=== PATIENT | male | born 1955 | race Caucasian/White ===

== ENCOUNTER → 2018-04-30 | Outpatient (CLI) | payer OTHER | END | disposition home or self-care (01) | LOC: CVU 09:54 | PROVIDERS: ATTEND Internal Medicine Cardiovascular Disease | DX: I65.23 Occlusion and stenosis of bilateral carotid arteries (principal); I10 Essential (primary) hypertension; Z95.1 Presence of aortocoronary bypass graft | CPT/HCPCS: 93880 ==

== ENCOUNTER 2018-05-15 22:08 | Inpatient (IN) | payer OTHER ==
[~2018-05-15] VITALS: Ht 177.8 cm; Wt 93.7 kg
[2018-05-15] MEDS ORDERED: ZOLP-413 PO (22:25)
[2018-05-15] MEDS ORDERED: LISI-170 PO (22:25)
[2018-05-15] MEDS ORDERED: CETI10CA PO (22:25)
[2018-05-15] MEDS ORDERED: METO25TA35 PO (22:25)
[2018-05-15] MEDS ORDERED: ATOR40TA PO (22:25)
[2018-05-15] MEDS ORDERED: ASPI-496 PO (22:25)
[2018-05-15 22:44] LABS: BASOPHILS # (AUTO) 0.04 x10^3/uL (0-0.1); BASOPHILS % (AUTO) 0 % (0-1); EOSINOPHILS # (AUTO) 0.13 x10^3/uL (0-0.4); EOSINOPHILS % (AUTO) 2 % (1-7); LYMPHOCYTES # (AUTO) 3.09 x10^3/uL (1-3.4); LYMPHOCYTES % (AUTO) 38 % (22-44); MD NO; MEAN CORPUSCULAR HEMOGLOBIN 33.1 pg (27.5-34.5); MEAN CORPUSCULAR HGB CONC 34.5 g/dL (33.2-36.2); MEAN CORPUSCULAR VOLUME 95.9 fL (81-97); MONOCYTES # (AUTO) 0.77 x10^3/uL (0.2-0.8); MONOCYTES % (AUTO) 9 % (2-9); NEUTROPHILS # (AUTO) 4.19 x10^3/uL (1.8-6.8); NEUTROPHILS % (AUTO) 51 % (42-75); PLATELET COUNT 212 x10^3/uL (130-400); RED BLOOD COUNT 4.43 x10^6/uL (4.38-5.82); RED CELL DISTRIBUTION WIDTH 13.4 % (9.4-14.8)
[2018-05-15 22:55] LABS: ALBUMIN 3.5 g/dL (3.4-5.0); ANION GAP 4 mmol/L (5-15); CALCIUM 8.5 mg/dL (8.5-10.1); CHLORIDE 108 mmol/L (98-107); CREATININE 0.94 mg/dL (0.7-1.3)
[2018-05-15 22:59] LABS: TROPONIN I 0.035 ng/mL (0.000-0.045)
[2018-05-15] MEDS ORDERED: KETOROLAC 30 MG/1 ML ONE (23:09)
[2018-05-15] MEDS ORDERED: NITROGLYCERIN SINGLE TAB 0.4 MG SL ONE (23:23)
[2018-05-15] MEDS ORDERED: NITROGLYCERIN 0.4 MG BOTTLE (25 TABS) SL ONE (23:30)
[2018-05-15] MEDS ORDERED: ONDANSETRON 2MG/ML, 2ML IVPush PRN (23:30)
[2018-05-15] MEDS ORDERED: MORPHINE SULFATE 4 MG/ML, 1ML IVPush PRN (23:30)
[2018-05-16] MEDS ORDERED: ACETAMINOPHEN 325 MG TABLET PO PRN
[2018-05-16] MEDS ORDERED: POLYETHYLENE GLYCOL 17 GM PACKET PO PRN
[2018-05-16] MEDS ORDERED: NITROGLYCERIN 0.4 MG BOTTLE (25 TABS) SL PRN
[2018-05-16] MEDS ORDERED: BISACODYL 10 MG SUPP PR PRN
[2018-05-16] MEDS ORDERED: ONDANSETRON 2MG/ML, 2ML IVPush PRN
[2018-05-16] MEDS ORDERED: hydrALAzine 20 MG/ML, 1ML IVPush PRN
[2018-05-16] MEDS ORDERED: morphine SULFATE 10 MG/ML, 1ML IVPush PRN
[2018-05-16 00:35] VITALS: BP 134/70
[2018-05-16 00:38] VITALS: BP 134/70
[2018-05-16] MEDS: HEPARIN 5,000 UNITS/ML, 1ML SQ SCH ×3 (01:19→16:30)
[2018-05-16] MEDS: FAMOTIDINE 20 MG TABLET PO SCH ×2 (01:22→20:59)
[2018-05-16] MEDS: ZOLPIDEM 5MG TABLET PO PRN ×2 (01:30→22:06)
[2018-05-16] MEDS ORDERED: RANI150C PO (01:46)
[2018-05-16 05:43] LABS: CHLORIDE 108 mmol/L (98-107)
[2018-05-16 05:45] LABS: BASOPHILS # (AUTO) 0.02 x10^3/uL (0-0.1); BASOPHILS % (AUTO) 0 % (0-1); EOSINOPHILS # (AUTO) 0.07 x10^3/uL (0-0.4); EOSINOPHILS % (AUTO) 1 % (1-7); LYMPHOCYTES # (AUTO) 3.06 x10^3/uL (1-3.4); LYMPHOCYTES % (AUTO) 38 % (22-44); MD NO; MEAN CORPUSCULAR HEMOGLOBIN 33.5 pg (27.5-34.5); MEAN CORPUSCULAR HGB CONC 34.5 g/dL (33.2-36.2); MEAN PLATELET VOLUME 8.1 fL (7.4-10.4); MONOCYTES # (AUTO) 0.65 x10^3/uL (0.2-0.8); MONOCYTES % (AUTO) 8 % (2-9); NEUTROPHILS # (AUTO) 4.33 x10^3/uL (1.8-6.8); NEUTROPHILS % (AUTO) 53 % (42-75); PLATELET COUNT 206 x10^3/uL (130-400); RED BLOOD COUNT 4.32 x10^6/uL (4.38-5.82); RED CELL DISTRIBUTION WIDTH 13.5 % (9.4-14.8)
[2018-05-16 05:53] LABS: ALANINE AMINOTRANSFERASE 26 U/L (12-78); ALBUMIN 3.2 g/dL (3.4-5.0); ALKALINE PHOSPHATASE 38 U/L (45-117); ANION GAP 6 mmol/L (5-15); BILIRUBIN,TOTAL 1.3 mg/dL (0.2-1.0); CALCIUM 8.2 mg/dL (8.5-10.1); CHOL/HDL RATIO 2.4; CHOLESTEROL, TOTAL 100 mg/dL (140-239); CREATININE 0.85 mg/dL (0.7-1.3); HDL CHOL % 42 % (26-37); HDL CHOLESTEROL (DIRECT) 42 mg/dL (40-60); LDL CHOLESTEROL,CALCULATED 46 mg/dL (54-169); LDL/HDL RATIO 1.1 (0.5-3.0); TOTAL PROTEIN 6.1 g/dL (6.4-8.2); TRIGLYCERIDES 58 mg/dL (50-200); TROPONIN I 0.037 ng/mL (0.000-0.045); VLDL CHOLESTEROL 12 mg/dL (0-25)
[2018-05-16 06:56] VITALS: BP 119/64
[2018-05-16] MEDS ORDERED: REGADENOSON 0.4 MG/5 ML SYRINGE ONE (07:25)
[2018-05-16] MEDS: LISINOPRIL 20 MG TABLET PO SCH ×3 (09:00→20:59)
[2018-05-16] MEDS: SODIUM CHLORIDE FLUSH 10ML SYR IVF SCH ×3 (09:00→20:59)
[2018-05-16] MEDS: METOPROLOL TARTRATE 25 MG TABLET PO SCH ×3 (09:00→20:59)
[2018-05-16] MEDS: CETIRIZINE 10 MG TABLET PO SCH (09:00)
[2018-05-16] MEDS: SENNA/DOCUSATE TABLET PO SCH (09:00)
[2018-05-16 11:14] LABS: TROPONIN I 0.177 ng/mL (0.000-0.045)
[2018-05-16 14:24] VITALS: BP 146/78
[2018-05-16] MEDS ORDERED: HEPARIN 25,000 UNITS/500ML PMX 500 ML ONE (17:20)
[2018-05-16 17:54] LABS: CHOL/HDL RATIO 2.5; LDL/HDL RATIO 1.1 (0.5-3.0)
[2018-05-16] MEDS ORDERED: HEPARIN 5,000 UNITS/ML, 1ML IV ONE ×2 (18:00)
[2018-05-16] MEDS ORDERED: HEPARIN 5,000 UNITS/ML, 1ML IV PRN (18:00)
[2018-05-16] MEDS ORDERED: HEPARIN 25,000 UNITS/500ML PMX 500 ML IV PRN (18:00)
[2018-05-16 19:05] VITALS: BP 133/69
[2018-05-16] MEDS: ATORVASTATIN 40 MG TABLET PO SCH ×2 (20:59)
[2018-05-16] MEDS: ASPIRIN 81 MG TABLET EC PO SCH (20:59)
[2018-05-17 00:52] VITALS: BP 106/56
[2018-05-17 05:40] LABS: ALBUMIN 3.1 g/dL (3.4-5.0); ANION GAP 5 mmol/L (5-15); CALCIUM 8.2 mg/dL (8.5-10.1); CHLORIDE 108 mmol/L (98-107)
[2018-05-17 05:42] LABS: BASOPHILS # (AUTO) 0.03 x10^3/uL (0-0.1); BASOPHILS % (AUTO) 0 % (0-1); CREATININE 0.85 mg/dL (0.7-1.3); EOSINOPHILS % (AUTO) 1 % (1-7); LYMPHOCYTES # (AUTO) 2.53 x10^3/uL (1-3.4); LYMPHOCYTES % (AUTO) 22 % (22-44); MD NO; MEAN CORPUSCULAR HEMOGLOBIN 33.1 pg (27.5-34.5); MEAN CORPUSCULAR HGB CONC 33.7 g/dL (33.2-36.2); MEAN CORPUSCULAR VOLUME 98.1 fL (81-97); MONOCYTES # (AUTO) 0.76 x10^3/uL (0.2-0.8); MONOCYTES % (AUTO) 7 % (2-9); NEUTROPHILS # (AUTO) 8.09 x10^3/uL (1.8-6.8); NEUTROPHILS % (AUTO) 70 % (42-75); PLATELET COUNT 200 x10^3/uL (130-400); RED CELL DISTRIBUTION WIDTH 13.6 % (9.4-14.8)
[2018-05-17 05:50] LABS: HEMOGLOBIN A1C 5.9 % (4.2-6.3)
[2018-05-17 07:19] VITALS: BP 109/67
[2018-05-17] MEDS: CETIRIZINE 10 MG TABLET PO SCH (07:59)
[2018-05-17] MEDS: METOPROLOL TARTRATE 25 MG TABLET PO SCH ×2 (07:59→21:19)
[2018-05-17] MEDS: LISINOPRIL 20 MG TABLET PO SCH ×2 (08:00→21:18)
[2018-05-17] MEDS: SENNA/DOCUSATE TABLET PO SCH (08:01)
[2018-05-17] MEDS: SODIUM CHLORIDE FLUSH 10ML SYR IVF SCH ×2 (08:04→21:18)
[2018-05-17] MEDS ORDERED: TICAGRELOR 90 MG TABLET ONE (12:31)
[2018-05-17] MEDS ORDERED: LIDOCAINE-MPF 2% ,5ML ONE (12:31)
[2018-05-17] MEDS ORDERED: VERAPAMIL 2.5 MG/ML, 2ML ONE (12:31)
[2018-05-17] MEDS ORDERED: HEPARIN 1,000 UNITS/ML, 10ML ONE (12:31)
[2018-05-17] MEDS ORDERED: BIVALIRUDIN 250 MG ONE (12:31)
[2018-05-17] MEDS ORDERED: FENTANYL PF 100 MCG/2ML ONE (12:31)
[2018-05-17] MEDS ORDERED: MIDAZOLAM 1 MG/ML, 5ML ONE (12:31)
[2018-05-17] MEDS ORDERED: SODIUM CHLORIDE 0.9% 1,000 ML IV SCH (14:52)
[2018-05-17 14:58] VITALS: BP 125/58
[2018-05-17 19:13] VITALS: BP 133/68
[2018-05-17] MEDS: ZOLPIDEM 5MG TABLET PO PRN (21:19)
[2018-05-17] MEDS: ASPIRIN 81 MG TABLET EC PO SCH (21:19)
[2018-05-17] MEDS: ATORVASTATIN 40 MG TABLET PO SCH (21:19)
[2018-05-17] MEDS: TICAGRELOR 90 MG TABLET PO SCH (21:19)
[2018-05-17] MEDS: FAMOTIDINE 20 MG TABLET PO SCH (21:19)
[2018-05-17 21:22] VITALS: BP 131/75
[2018-05-18 02:40] VITALS: BP 118/67
[2018-05-18 05:23] LABS: ALBUMIN 3.1 g/dL (3.4-5.0); ANION GAP 5 mmol/L (5-15); CALCIUM 8.1 mg/dL (8.5-10.1); CHLORIDE 110 mmol/L (98-107)
[2018-05-18 07:00] VITALS: BP 121/72
[2018-05-18] MEDS: LISINOPRIL 20 MG TABLET PO SCH (08:25)
[2018-05-18] MEDS: METOPROLOL TARTRATE 25 MG TABLET PO SCH (08:25)
[2018-05-18] MEDS: TICAGRELOR 90 MG TABLET PO SCH (08:25)
[2018-05-18] MEDS: CETIRIZINE 10 MG TABLET PO SCH (08:27)
[2018-05-18] MEDS: SENNA/DOCUSATE TABLET PO SCH (08:27)
[2018-05-18] MEDS: SODIUM CHLORIDE FLUSH 10ML SYR IVF SCH (08:33)
[2018-05-18] MEDS ORDERED: ASPIRIN 81 MG TABLET EC PO SCH (09:00)
[2018-05-18] MEDS ORDERED: TICA90TA PO (12:23)
== END 2018-05-18 14:44 | disposition home or self-care (01) | DRG 246 ==
LOC: ED 23:09 → EDIP 23:18 → 5SO 05-16 00:12 → DCLOUNGE 05-18 14:23
PROVIDERS: ADMIT Hospitalist; ATTEND Hospitalist
PROC: 027035Z Dilation of Coronary Artery, One Artery with Two Drug-eluting Intraluminal Devices, Percutaneous Approach (ICD-10-PCS; principal; 2018-05-17)
PROC: 4A023N7 Measurement of Cardiac Sampling and Pressure, Left Heart, Percutaneous Approach (ICD-10-PCS; 2018-05-17)
PROC: B2111ZZ Fluoroscopy of Multiple Coronary Arteries using Low Osmolar Contrast (ICD-10-PCS; 2018-05-17)
PROC: B2151ZZ Fluoroscopy of Left Heart using Low Osmolar Contrast (ICD-10-PCS; 2018-05-17)
PROC: B2131ZZ Fluoroscopy of Multiple Coronary Artery Bypass Grafts using Low Osmolar Contrast (ICD-10-PCS; 2018-05-17)
PROC: B2181ZZ Fluoroscopy of Left Internal Mammary Bypass Graft using Low Osmolar Contrast (ICD-10-PCS; 2018-05-17)
DX: I25.118 Atherosclerotic heart disease of native coronary artery with other forms of angina pectoris (principal); I50.33 Acute on chronic diastolic (congestive) heart failure; I10 Essential (primary) hypertension; I25.82 Chronic total occlusion of coronary artery; R00.1 Bradycardia, unspecified; E78.5 Hyperlipidemia, unspecified; Z79.82 Long term (current) use of aspirin; Z80.7 Family history of other malignant neoplasms of lymphoid, hematopoietic and related tissues; Z82.49 Family history of ischemic heart disease and other diseases of the circulatory system; Z87.891 Personal history of nicotine dependence; Z95.1 Presence of aortocoronary bypass graft; Z96.659 Presence of unspecified artificial knee joint
CPT/HCPCS: 36415; 71045; 78452; 80048; 80053; 80061; 80069; 82040; 83036; 84484; 85014; 85018; 85025; 85520; 93005; 93017; 93306; 93458; 99156; 99157; 99285; C1769; C1894; J0583; J1644; J2250; J2785; J3010; J3490; A9502; C1725; C1874; C1887; C9898; J7030; Q9967

== ENCOUNTER 2018-11-23 06:54 | Inpatient (IN) | payer OTHER ==
[~2018-11-23] VITALS: Ht 177.8 cm; Wt 89.5 kg
[~2018-11-23 06:54] MED LIST: ASPI-496 PO; ATOR40TA PO; CETI10CA PO; LISI-170 PO; METO25TA35 PO; RANI150C PO; TICA90TA PO; ZOLP-413 PO
--- NOTE | 2018-11-23 07:14 | NUR ---
PT. ARRIVES BY [facility] WITH C/O BILAT SHOULDER PAIN THAT RADIATES TO HIS LEFT CHEST AND LEFT ARM PAIN. PT. STATES THE ONSET WAS 0535 AM. PT. STATES HE TOOK 324 MG [facility]SA PRENATAL NURSE. EMS GAVE THE PT. A NITRO WITHOUT RELIEF. IV ACCESS WAS ESTABLISHED IN THE FIELD. PT.'S LUNGS ARE CTA. MM ARE PINK AND MOIST WITH PULSES +2 THROUGHOUT. PT.'S ABD. IS SOFT AND ROUND WITH BS + X 4 QUADS. PT. HAS THE CP MONITOR IN PLACE. 12 LEAD EKG WAS DONE. SIDERAILS ARE UP X 2 WITH THE CALL LIGHT IN PLACE.
[2018-11-23] MEDS ORDERED: SODIUM CHLORIDE FLUSH 10ML SYR IVF ONE (07:30)
[2018-11-23] MEDS ORDERED: NITROGLYCERIN OINT 2%, 1GM TP ONE ×2 (07:30→07:48)
[2018-11-23 07:32] LABS: BASOPHILS # (AUTO) 0.02 x10^3/uL (0-0.1); BASOPHILS % (AUTO) 0 % (0-1); EOSINOPHILS # (AUTO) 0.14 x10^3/uL (0-0.4); EOSINOPHILS % (AUTO) 2 % (1-7); LYMPHOCYTES # (AUTO) 2.03 x10^3/uL (1-3.4); LYMPHOCYTES % (AUTO) 25 % (22-44); MD NO; MEAN CORPUSCULAR HGB CONC 33.9 g/dL (33.2-36.2); MEAN CORPUSCULAR VOLUME 97.4 fL (81-97); MEAN PLATELET VOLUME 7.7 fL (7.4-10.4); MONOCYTES # (AUTO) 0.52 x10^3/uL (0.2-0.8); MONOCYTES % (AUTO) 7 % (2-9); NEUTROPHILS # (AUTO) 5.28 x10^3/uL (1.8-6.8); NEUTROPHILS % (AUTO) 66 % (42-75); PLATELET COUNT 241 x10^3/uL (130-400); RED BLOOD COUNT 4.98 x10^6/uL (4.38-5.82); RED CELL DISTRIBUTION WIDTH 13.1 % (9.4-14.8)
[2018-11-23 07:45] LABS: ALBUMIN 3.7 g/dL (3.4-5.0); ANION GAP 5 mmol/L (5-15); CHLORIDE 105 mmol/L (98-107); CREATININE 0.97 mg/dL (0.7-1.3)
[2018-11-23 07:49] LABS: TROPONIN I < 0.015 ng/mL (0.000-0.045)
--- NOTE | 2018-11-23 08:15 | NUR ---
PT. REMAINS MONITORED VSS. NO CONCERNS.
--- NOTE | 2018-11-23 09:14 | NUR ---
THE PT. IS RESTING WITH HIS AT THE BEDSIDE. NO CONCERNS AT THIS TIME.
--- NOTE | 2018-11-23 09:21 | NUR ---
HOSPITALIST IS AT THE BEDSIDE. NO CONCERNS.
[2018-11-23] MEDS ORDERED: POLYETHYLENE GLYCOL 17 GM PACKET PO PRN (09:30)
[2018-11-23] MEDS ORDERED: ENALAPRILAT 1.25 MG/ML, 2ML IVPush PRN (09:30)
[2018-11-23] MEDS ORDERED: BISACODYL 10 MG SUPP PR PRN (09:30)
[2018-11-23] MEDS ORDERED: ONDANSETRON ODT 4 MG PO PRN (09:30)
[2018-11-23] MEDS ORDERED: ONDANSETRON 2MG/ML, 2ML IVPush PRN (09:30)
[2018-11-23] MEDS ORDERED: DOCUSATE 100 MG CAPSULE PO PRN (09:30)
[2018-11-23] MEDS ORDERED: MORPHINE SULFATE 4 MG/ML, 1ML IVPush PRN (09:30)
[2018-11-23] MEDS ORDERED: NITROGLYCERIN 0.4 MG BOTTLE (25 TABS) SL PRN (09:30)
[2018-11-23] MEDS ORDERED: FAMOTIDINE 20 MG TABLET PO PRN (10:00)
--- NOTE | 2018-11-23 10:00 | NUR ---
PT. IS RESTING WITHOUT CONCERNS.
[2018-11-23 11:11] LABS: THYROID STIMULATING HORMONE 3.87 mIU/L (0.358-3.740)
--- NOTE | 2018-11-23 11:29 | NUR ---
NO CHANGE AT THIS TIME.
--- NOTE | 2018-11-23 11:58 | NUR ---
REPORT WAS CALLED TO CIERRA CUNNINGHAM. PT. IS READY FOR TRANSPORT TO THE FLOOR.
--- NOTE | 2018-11-23 12:00 | NUR ---
DR. MASTERSON IS AT THE BEDSIDE DISCUSSING THE PLAN OF CARE WITH THE PT. PT. IS AWARE THAT HE IS NPO. PT. IS READY FOR TRANSPORT.
[2018-11-23 12:20] VITALS: BP 146/78
[2018-11-23 12:25] LABS: TROPONIN I < 0.015 ng/mL (0.000-0.045)
[2018-11-23] MEDS ORDERED: SODIUM CHLORIDE 0.9% 1,000 ML IV ONE (12:26)
[2018-11-23] MEDS ORDERED: MIDAZOLAM 1 MG/ML, 5ML ONE (13:36)
[2018-11-23] MEDS ORDERED: FENTANYL PF 100 MCG/2ML ONE (13:36)
[2018-11-23] MEDS ORDERED: TICAGRELOR 90 MG TABLET ONE (13:36)
[2018-11-23] MEDS ORDERED: VERAPAMIL 2.5 MG/ML, 2ML ONE (13:36)
[2018-11-23] MEDS ORDERED: BIVALIRUDIN 250 MG ONE (13:37)
[2018-11-23] MEDS ORDERED: LIDOCAINE-MPF 1%, 5ML ONE ×2 (13:37→13:40)
[2018-11-23] MEDS ORDERED: HEPARIN 1,000 UNITS/ML, 10ML ONE (13:37)
[2018-11-23] MEDS ORDERED: LIDOCAINE 1%, 20ML ONE (14:00)
[2018-11-23 14:04] LABS: TROPONIN I < 0.015 ng/mL (0.000-0.045)
[2018-11-23] MEDS ORDERED: ACETAMINOPHEN 325 MG TABLET PO PRN (15:00)
[2018-11-23] MEDS: SODIUM CHLORIDE 0.9% 1,000 ML IV SCH ×2 (15:24→22:54)
[2018-11-23] MEDS: ACETAMINOPHEN 325 MG TABLET PO PRN (16:37)
[2018-11-23 18:50] VITALS: BP 118/63
[2018-11-23 20:11] VITALS: BP 120/66
[2018-11-23] MEDS: LISINOPRIL 20 MG TABLET PO SCH (20:12)
[2018-11-23] MEDS: TICAGRELOR 90 MG TABLET PO SCH (20:12)
[2018-11-23] MEDS: METOPROLOL TARTRATE 25 MG TABLET PO SCH (20:13)
[2018-11-23] MEDS ORDERED: ASPIRIN 81 MG TABLET CHEW PO SCH (21:00)
[2018-11-23] MEDS ORDERED: ATORVASTATIN 40 MG TABLET PO SCH (21:00)
[2018-11-23] MEDS ORDERED: ZOLPIDEM 5MG TABLET PO PRN (23:00)
[2018-11-24 00:11] VITALS: BP 101/59
[2018-11-24 01:23] VITALS: BP 117/69
[2018-11-24] MEDS: ACETAMINOPHEN 325 MG TABLET PO PRN (05:23)
[2018-11-24 05:35] LABS: CHLORIDE 106 mmol/L (98-107)
[2018-11-24 05:49] LABS: ANION GAP 6 mmol/L (5-15); CALCIUM 8.3 mg/dL (8.5-10.1); CREATININE 0.91 mg/dL (0.7-1.3); TRIGLYCERIDES 64 mg/dL (50-200)
[2018-11-24 05:50] LABS: BASOPHILS # (AUTO) 0.01 x10^3/uL (0-0.1); BASOPHILS % (AUTO) 0 % (0-1); CHOL/HDL RATIO 2.3; CHOLESTEROL, TOTAL 105 mg/dL (140-239); EOSINOPHILS # (AUTO) 0.27 x10^3/uL (0-0.4); EOSINOPHILS % (AUTO) 2 % (1-7); HDL CHOL % 44 % (26-37); HDL CHOLESTEROL (DIRECT) 46 mg/dL (40-60); LDL CHOLESTEROL,CALCULATED 46 mg/dL (54-169); LYMPHOCYTES # (AUTO) 2.19 x10^3/uL (1-3.4); LYMPHOCYTES % (AUTO) 20 % (22-44); MD NO; MEAN CORPUSCULAR HEMOGLOBIN 33.8 pg (27.5-34.5); MEAN CORPUSCULAR HGB CONC 34.4 g/dL (33.2-36.2); MEAN CORPUSCULAR VOLUME 98.2 fL (81-97); MONOCYTES # (AUTO) 0.81 x10^3/uL (0.2-0.8); MONOCYTES % (AUTO) 7 % (2-9); NEUTROPHILS # (AUTO) 7.93 x10^3/uL (1.8-6.8); NEUTROPHILS % (AUTO) 71 % (42-75); PLATELET COUNT 210 x10^3/uL (130-400); RED BLOOD COUNT 4.66 x10^6/uL (4.38-5.82); RED CELL DISTRIBUTION WIDTH 13.3 % (9.4-14.8); VLDL CHOLESTEROL 13 mg/dL (0-25)
[2018-11-24 07:43] VITALS: BP 132/83
[2018-11-24] MEDS: TICAGRELOR 90 MG TABLET PO SCH (09:13)
[2018-11-24] MEDS: LISINOPRIL 20 MG TABLET PO SCH (09:13)
[2018-11-24] MEDS: METOPROLOL TARTRATE 25 MG TABLET PO SCH (09:13)
[2018-11-24] MEDS ORDERED: NITR0.4T SL (11:30)
[2018-11-24 12:30] VITALS: BP 116/75
== END 2018-11-24 13:22 | disposition home or self-care (01) | DRG 287 ==
LOC: ED 08:31 → EDIP 08:32 → 5SO 12:06
PROVIDERS: ADMIT Hospitalist; ATTEND Internal Medicine
PROC: B2111ZZ Fluoroscopy of Multiple Coronary Arteries using Low Osmolar Contrast (ICD-10-PCS; principal; 2018-11-23)
PROC: B2131ZZ Fluoroscopy of Multiple Coronary Artery Bypass Grafts using Low Osmolar Contrast (ICD-10-PCS; 2018-11-23)
PROC: B2181ZZ Fluoroscopy of Left Internal Mammary Bypass Graft using Low Osmolar Contrast (ICD-10-PCS; 2018-11-23)
DX: T82.898A Other specified complication of vascular prosthetic devices, implants and grafts, initial encounter (principal); I25.110 Atherosclerotic heart disease of native coronary artery with unstable angina pectoris; I10 Essential (primary) hypertension; E78.41 Elevated Lipoprotein(a); I65.29 Occlusion and stenosis of unspecified carotid artery; I73.9 Peripheral vascular disease, unspecified; G47.33 Obstructive sleep apnea (adult) (pediatric); I25.82 Chronic total occlusion of coronary artery; Y83.8 Other surgical procedures as the cause of abnormal reaction of the patient, or of later complication, without mention of misadventure at the time of the procedure; Z96.653 Presence of artificial knee joint, bilateral; Z87.11 Personal history of peptic ulcer disease; Z82.49 Family history of ischemic heart disease and other diseases of the circulatory system; Z83.430 Family history of elevated lipoprotein(a); Z87.891 Personal history of nicotine dependence; Z95.1 Presence of aortocoronary bypass graft; Z95.5 Presence of coronary angioplasty implant and graft; Y92.89 Other specified places as the place of occurrence of the external cause; Z88.6 Allergy status to analgesic agent
CPT/HCPCS: 36415; 71045; 80048; 80061; 82040; 83735; 84443; 84484; 85025; 85379; 93005; 93306; 93454; 99156; 99157; C1760; C1769; C1894; G0378; J0583; J1644; J2250; J3010; J3490; J7030; Q9967

== ENCOUNTER 2019-12-03 07:59 | Emergency (ER) | payer MEDICARE ==
[~2019-12-03] VITALS: Ht 177.8 cm; Wt 90.9 kg
[~2019-12-03 07:59] MED LIST changes: +NITR0.4T41 SL
[2019-12-03] MEDS ORDERED: AMLO5TAB4 PO (08:21)
[2019-12-03 08:29] LABS: BASOPHILS # (AUTO) 0.03 x10^3/uL (0-0.1); BASOPHILS % (AUTO) 0 % (0-1); EOSINOPHILS % (AUTO) 1 % (1-7); LYMPHOCYTES # (AUTO) 1.83 x10^3/uL (1-3.4); LYMPHOCYTES % (AUTO) 22 % (22-44); MD NO; MEAN CORPUSCULAR VOLUME 97.1 fL (81-97); MONOCYTES # (AUTO) 0.55 x10^3/uL (0.2-0.8); MONOCYTES % (AUTO) 7 % (2-9); NEUTROPHILS % (AUTO) 69 % (42-75); PLATELET COUNT 344 x10^3/uL (130-400); RED CELL DISTRIBUTION WIDTH 12.9 % (9.4-14.8)
[2019-12-03 08:42] LABS: ALBUMIN 3.3 g/dL (3.4-5.0); ANION GAP 6 mmol/L (5-15); CALCIUM 8.5 mg/dL (8.5-10.1); CHLORIDE 102 mmol/L (98-107)
[2019-12-03 08:47] LABS: TROPONIN I < 0.015 ng/mL (0.000-0.045)
--- NOTE | 2019-12-03 10:01 | NUR ---
REPROT RECIEVED FROM MARISA VIRGEN. ASSUMED CARE OF PT.
--- NOTE | 2019-12-03 10:03 | NUR ---
LATE ENTRY FOR 808 BIB EMS FROM HOME. WOKE THIS AM WITH LEFT ARM AND FACIAL NUMBNESS,TINGLING, COLD, CLAMMY, LBP. TOOK 0.4 NTG SL, AND 324 ASA, LEFT POSTERIOR TYLER DEVELOPED AFTER NTG.
--- NOTE | 2019-12-03 10:03 | NUR ---
LATE ENTRY FOR 0815, ER PA AT BEDSIDE, PT ASSESSMENT POC DISCUSSED AND ORDERS REC'D. PT ON ALL MONITORS, VSS, CALL LIGHT W/I REACH. NAD NOTED.
--- NOTE | 2019-12-03 10:45 | NUR ---
ISABEL FOURNIER AND JOHNATHAN HARMON AT BEDSIDE FOR RECHECK/EXPLANATION OF RESULTS. PT CURRENTLY RESTING ON GURNEY. NAD NOTED. SKIN PWD. RESP EVEN AND UNLABORED. PT NSR 60'S ON LAB COORDINATOR. NAD NOTED. SKIN PWD. RESP EVEN AND UNLABORED. PT CURRENTLY DENIES PAIN OR NUBMNESS/TINGLING. AT BEDSIDE. PT ON CONT BP, CARDIAC AND O2 MONITORS. CALL LIGHT WITHIN REACH. WILL CONT TO MONITOR PT.
[2019-12-03 11:38] LABS: TROPONIN I < 0.015 ng/mL (0.000-0.045)
--- NOTE | 2019-12-03 12:04 | NUR ---
ASSUMED CARE OF PT, PT AMBULATED WITHOUT DISTRESS AND NO COMPLAINTS. VITALS ARE NORMAL AND PT DENIES RESP DISTRESS.
[2019-12-03 12:24] VITALS: BP_SYST 107
--- NOTE | 2019-12-03 12:24 | NUR ---
Patient/Caregiver given discharge instructions and they have confirmed that they understand the instructions. Patient ambulatory with steady gait.
== END 2019-12-03 12:26 | disposition home or self-care (01) ==
LOC: ED 12:00
DX: R20.2 Paresthesia of skin (principal); E78.00 Pure hypercholesterolemia, unspecified; I10 Essential (primary) hypertension
CPT/HCPCS: 36415; 71045; 80048; 82040; 84484; 85025; 93005; 99284

== ENCOUNTER → 2020-01-23 | Outpatient (CLI) | payer MEDICARE ==
[~2020-01-23] MED LIST changes: +AMLO5TAB4 PO
== END | disposition home or self-care (01) ==
LOC: CVU 06:53
PROVIDERS: ATTEND Internal Medicine Cardiovascular Disease
DX: I65.23 Occlusion and stenosis of bilateral carotid arteries (principal); I21.29 ST elevation (STEMI) myocardial infarction involving other sites; I25.9 Chronic ischemic heart disease, unspecified; I25.10 Atherosclerotic heart disease of native coronary artery without angina pectoris
CPT/HCPCS: 78452; 93017; 93880; A9502

== ENCOUNTER 2020-04-21 15:39 | Outpatient (CLI) | payer MEDICARE ==
[2020-04-21] MEDS ORDERED: SILD50TA PO (16:20)
[2020-04-21] MEDS ORDERED: 5-HY100C3 PO (16:20)
[2020-04-21] MEDS ORDERED: MULT-658 PO (16:20)
[2020-04-21] MEDS ORDERED: SAW160CA4 PO (16:20)
[2020-04-21] MEDS ORDERED: KRIL1CAP7 PO (16:20)
[2020-04-21] MEDS ORDERED: GLUC-104 PO (16:20)
[2020-04-21] MEDS ORDERED: MELA1TAB8 PO (16:20)
[2020-04-21] MEDS ORDERED: EZET10TA70 PO (16:20)
[2020-04-21] MEDS ORDERED: ZOLP5TAB6 PO (16:20)
[2020-04-21] MEDS ORDERED: UBID100C24 PO (16:20)
[2020-04-21] MEDS ORDERED: ATOR-2 PO (16:20)
[2020-04-21] MEDS ORDERED: CETI10CA PO (16:20)
[2020-04-21 16:47] LABS: BASOPHILS # (AUTO) 0.03 x10^3/uL (0-0.1); BASOPHILS % (AUTO) 0 % (0-1); EOSINOPHILS # (AUTO) 0.19 x10^3/uL (0-0.4); EOSINOPHILS % (AUTO) 2 % (1-7); LYMPHOCYTES # (AUTO) 2.95 x10^3/uL (1-3.4); LYMPHOCYTES % (AUTO) 35 % (22-44); MD NO; MEAN CORPUSCULAR HEMOGLOBIN 32.8 pg (27.5-34.5); MEAN CORPUSCULAR VOLUME 96.4 fL (81-97); MEAN PLATELET VOLUME 7.5 fL (7.4-10.4); MONOCYTES % (AUTO) 7 % (2-9); NEUTROPHILS # (AUTO) 4.75 x10^3/uL (1.8-6.8); NEUTROPHILS % (AUTO) 56 % (42-75); PLATELET COUNT 322 x10^3/uL (130-400); RED BLOOD COUNT 4.56 x10^6/uL (4.38-5.82); RED CELL DISTRIBUTION WIDTH 13.1 % (9.4-14.8)
[2020-04-21 16:50] LABS: ALANINE AMINOTRANSFERASE 35 U/L (12-78); ALBUMIN 3.6 g/dL (3.4-5.0); ANION GAP 5 mmol/L (5-15); CALCIUM 8.2 mg/dL (8.5-10.1); CHLORIDE 104 mmol/L (98-107); CREATININE 1.22 mg/dL (0.7-1.3)
[2020-04-21 16:52] LABS: ALKALINE PHOSPHATASE 62 U/L (45-117); TOTAL PROTEIN 7.2 g/dL (6.4-8.2)
[2020-05-05] MEDS ORDERED: ZOLP-413 PO (07:39)
== END 2020-04-21 23:59 | disposition home or self-care (01) ==
LOC: STAR 15:39
PROVIDERS: ATTEND Surgery
DX: Z01.818 Encounter for other preprocedural examination (principal); I65.22 Occlusion and stenosis of left carotid artery
CPT/HCPCS: 36415; 71046; 80053; 85025; 93005

== ENCOUNTER → 2021-01-01 | Outpatient (CLI) | payer MEDICARE ==
[~2021-01-01] MED LIST changes: +5-HY100C3 PO; +ATOR-2 PO; +EZET10TA70 PO; +GLUC-104 PO; +KRIL1CAP7 PO; +MELA1TAB8 PO; +MULT-658 PO; +REGADENOSON 0.4 MG/5 ML SYRINGE ONE; +SAW160CA4 PO; +SILD50TA PO; +UBID100C24 PO; +ZOLP5TAB6 PO
== END | disposition home or self-care (01) ==
LOC: CFH 08:04
PROVIDERS: ATTEND Internal Medicine Cardiovascular Disease
DX: I21.19 ST elevation (STEMI) myocardial infarction involving other coronary artery of inferior wall (principal); I25.89 Other forms of chronic ischemic heart disease; I25.10 Atherosclerotic heart disease of native coronary artery without angina pectoris; I10 Essential (primary) hypertension
CPT/HCPCS: 78452; 93017; A9502; J2785

== ENCOUNTER 2021-01-17 22:03 | Emergency (ER) | payer MEDICARE ==
[~2021-01-17] VITALS: Ht 177.8 cm; Wt 94.0 kg
[~2021-01-17 22:03] MED LIST changes: -REGADENOSON 0.4 MG/5 ML SYRINGE ONE
--- NOTE | 2021-01-17 22:32 | NUR ---
PT RECIEVED 1 L NS BOLUS FROM [facility].
--- NOTE | 2021-01-17 22:50 | NUR ---
REPORT FROM ROSEMARIE CUNNINGHAM. NS INFUSING. VSS. CALL LIGHT IN REACH
--- NOTE | 2021-01-17 22:51 | NUR ---
GAVE REPORT TO ALVIN CUNNINGHAM
[2021-01-17 23:22] VITALS: BP 122/61
== END 2021-01-17 23:24 | disposition home or self-care (01) ==
LOC: ED 23:00
DX: I95.2 Hypotension due to drugs (principal); R53.1 Weakness; R94.31 Abnormal electrocardiogram [ECG] [EKG]; I10 Essential (primary) hypertension; E78.00 Pure hypercholesterolemia, unspecified; Z95.1 Presence of aortocoronary bypass graft
CPT/HCPCS: 93005; 99283

== ENCOUNTER 2021-04-01 11:18 | Observation (INO) | payer MEDICARE ==
[~2021-04-01] VITALS: Ht 177.8 cm; Wt 96.5 kg
[2021-04-01 11:44] VITALS: BP 135/80
[2021-04-01] MEDS ORDERED: MIDAZOLAM 1 MG/ML, 5ML ONE (12:18)
[2021-04-01] MEDS ORDERED: LIDOCAINE-MPF 1%, 5ML ONE (12:19)
[2021-04-01] MEDS ORDERED: BIVALIRUDIN 250 MG ONE (12:19)
[2021-04-01] MEDS ORDERED: TICAGRELOR 90 MG TABLET ONE (12:19)
[2021-04-01] MEDS ORDERED: HEPARIN 1,000 UNITS/ML, 10ML ONE (12:19)
[2021-04-01] MEDS ORDERED: FENTANYL PF 100 MCG/2ML ONE (12:19)
[2021-04-01] MEDS ORDERED: VERAPAMIL 2.5 MG/ML, 2ML ONE (12:19)
[2021-04-01] MEDS ORDERED: MELA1TAB46 PO (12:23)
[2021-04-01] MEDS ORDERED: L.AC1CAP6 PO (12:23)
[2021-04-01] MEDS ORDERED: NITROGLYCERIN 5 MG/ML, 10ML ONE (12:29)
[2021-04-01 12:33] LABS: BASOPHILS % (AUTO) 0 % (0-1); EOSINOPHILS % (AUTO) 1 % (1-7); LYMPHOCYTES % (AUTO) 29 % (22-44); MEAN CORPUSCULAR HEMOGLOBIN 33.3 pg (27.5-34.5); MONOCYTES % (AUTO) 6 % (2-9); NEUTROPHILS % (AUTO) 64 % (42-75); PLATELET COUNT 230 x10^3/uL (130-400); RED BLOOD COUNT 4.64 x10^6/uL (4.38-5.82); RED CELL DISTRIBUTION WIDTH 13.3 % (9.4-14.8)
[2021-04-01 12:35] LABS: MD NO
[2021-04-01 12:44] LABS: ANION GAP 5 mmol/L (5-15); CALCIUM 8.6 mg/dL (8.5-10.1); CHLORIDE 106 mmol/L (98-107); CREATININE 0.82 mg/dL (0.7-1.3)
[2021-04-01] MEDS ORDERED: ADENOSINE 6 MG/2 ML ONE (13:46)
[2021-04-01] MEDS ORDERED: SODIUM CHLORIDE 0.9% 1,000 ML IV SCH ×2 (16:00)
[2021-04-01] MEDS ORDERED: SILDENAFIL PO SCH (16:00)
[2021-04-01 18:45] VITALS: BP 172/98
[2021-04-01 19:45] VITALS: BP 158/78
[2021-04-01] MEDS: TICAGRELOR 90 MG TABLET PO SCH (20:25)
[2021-04-01] MEDS: METOPROLOL TARTRATE 25 MG TAB PO SCH (20:25)
[2021-04-01] MEDS: LISINOPRIL 20 MG TABLET PO SCH (20:25)
[2021-04-01] MEDS ORDERED: ASPIRIN 81 MG TABLET EC PO SCH (21:00)
[2021-04-01] MEDS ORDERED: ZOLPIDEM 5MG TABLET PO PRN (21:00)
[2021-04-01] MEDS ORDERED: ATORVASTATIN 80 MG TABLET PO SCH (21:00)
[2021-04-02 01:00] VITALS: BP 169/76
[2021-04-02 07:41] VITALS: BP 138/76
[2021-04-02] MEDS: METOPROLOL TARTRATE 25 MG TAB PO SCH (07:44)
[2021-04-02] MEDS: LISINOPRIL 20 MG TABLET PO SCH (07:44)
[2021-04-02] MEDS: TICAGRELOR 90 MG TABLET PO SCH (07:44)
[2021-04-02 08:30] VITALS: BP 124/67
[2021-04-02] MEDS ORDERED: MULTIVITAMIN 1 TABLET PO SCH (09:00)
[2021-04-02] MEDS ORDERED: ISOSORBIDE MONONITRATE ER 30 MG TABLET PO SCH (09:00)
[2021-04-02] MEDS ORDERED: AMLODIPINE 5 MG TABLET PO SCH (09:00)
[2021-04-02] MEDS ORDERED: EZETIMIBE 10 MG TABLET PO SCH (09:00)
[2021-04-02] MEDS ORDERED: TICA90TA PO (09:46)
[2021-04-02] MEDS ORDERED: ISOS30TA8 PO (09:46)
[2021-04-02] MEDS ORDERED: METO25TA35 PO (09:46)
== END 2021-04-02 11:48 | disposition home or self-care (01) ==
LOC: CACL 11:18 → 5SO 15:01 → CACL 23:04 → 5SO 23:05 → DCLOUNGE 04-02 11:42
PROVIDERS: ADMIT Internal Medicine Cardiovascular Disease; ATTEND Internal Medicine Cardiovascular Disease
DX: I25.10 Atherosclerotic heart disease of native coronary artery without angina pectoris (principal); I10 Essential (primary) hypertension; E78.5 Hyperlipidemia, unspecified; I65.23 Occlusion and stenosis of bilateral carotid arteries; G47.30 Sleep apnea, unspecified; Z79.82 Long term (current) use of aspirin; Z79.899 Other long term (current) drug therapy; Z95.1 Presence of aortocoronary bypass graft
CPT/HCPCS: 36415; 80048; 85025; 93459; 99156; 99157; C1725; C1769; C1874; C1884; C1887; C1894; C9604; G0378; J0153; J0583; J1644; J2250; J3010; Q9967